=== PATIENT | male | born 1965 | race Caucasian/White ===

== ENCOUNTER 2018-09-20 02:11 | Emergency (ER) | payer SELFPAY ==
[2018-09-20] MEDS ORDERED: Albuterol/Ipratropium NEB.SOL* Albuterol 2.5 MG/Ipratropium 0.5 MG 3 ML INH ONE (02:20)
[2018-09-20] MEDS ORDERED: predniSONE TAB* 20 MG PO ONE (02:21)
[2018-09-20] MEDS ORDERED: Albuterol 2.5 MG/3 ML NEB.SOL* (0.083%) INH ONE (02:36)
[2018-09-20] MEDS: Albuterol 2.5 MG/3 ML NEB.SOL* (0.083%) INH SCH ×2 (02:39→02:53)
--- NOTE | 2018-09-20 02:58 | ED ---
Shortness of Breath - HPI Summary HPI Summary: This patient is a 52 year old M presenting to [facility] accompanied by his with a chief complaint of wheezing for the past hour and half. Patient is visiting from [place] and is staying in a house with dogs, which can trigger his asthma. Patient forgot his inhaler at home. - History of Current Complaint Chief Complaint: EDShortnessOfBreath Time Seen by Provider: 09/20/18 02:16 Hx Obtained From: Patient Onset/Duration: Lasting Hours Timing: Constant Aggravating Factors: Allergens Alleviating Factors: Nothing Associated Signs & Symptoms: Wheezing Related History: Similar Episode - Allergy/Home Medications Allergies/Adverse Reactions: Allergies Allergy/AdvReac Type Severity Reaction Status Date / Time No Known Allergies Allergy Verified 09/20/18 02:15 PMH/Surg Hx/FS Hx/Imm Hx Respiratory History: Reports: Hx Asthma EENT History: Denies: Hx Deafness Infectious Disease History: No Infectious Disease History: Denies: Traveled Outside the [place] in Last 30 Days - Family History Known Family History: Positive: Non-Contributory - Social History Lives: With Family Hx Tobacco Use: No Smoking Status (MU): Never Smoked Tobacco Review of Systems Negative: Fever Positive: Shortness Of Breath All Other Systems Reviewed And Are Negative: Yes Physical Exam - Summary Physical Exam Summary: GENERAL: Patient is a well-developed and nourished male who is lying comfortable in the stretcher. Patient is not in any acute respiratory distress. HEAD AND FACE: No signs of trauma. No ecchymosis, hematomas or skull depressions. No sinus tenderness. EYES: PERRLA, EOMI x 2, No injected conjunctiva, no nystagmus. EARS: Hearing grossly intact. Ear canals and tympanic membranes are within normal limits. MOUTH: Oropharynx within normal limits. NECK: Supple, trachea is midline, no adenopathy, no JVD, no carotid bruit, no c- spine tenderness, neck with full ROM CHEST: Symmetric, no tenderness at palpation LUNGS: Bilateral scattered expiratory wheezes. CVS: Regular rate and rhythm, S1 and S2 present, no murmurs or gallops appreciated. ABDOMEN: Soft, non-tender. No signs of distention. No rebound no guarding, and no masses palpated. Bowel sounds are normal. EXTREMITIES: FROM in all major joints, no edema, no cyanosis or clubbing. NEURO: Alert and oriented x 3. No acute neurological deficits. Speech is normal and follows commands. SKIN: Dry and warm Triage Information Reviewed: Yes Vital Signs On Initial Exam: Initial Vitals Temp Pulse Resp BP Pulse Ox 98.1 F 82 20 131/90 96 09/20/18 02:12 09/20/18 02:12 09/20/18 02:12 09/20/18 02:12 09/20/18 02:12 Vital Signs Reviewed: Yes Diagnostics - Vital Signs Vital Signs Temp Pulse Resp BP Pulse Ox 09/20/18 02:12 98.1 F 82 20 131/90 96 - Laboratory Lab Statement: Any lab studies that have been ordered have been reviewed, and results considered in the medical decision making process. Course/Dx - Course Course Of Treatment: 52 year old M presenting to [facility] accompanied by his with a chief complaint of wheezing for the past hour and half. Patient is given prednisone, an nebulizer treatment, and an albuterol inhaler with improvement of symptoms. Patient will be discharged home. Patient is returning to [place] later today where he states he has his inhaler. - Diagnoses Provider Diagnoses: Asthma Discharge - Sign-Out/Discharge Documenting (check all that apply): Patient Departure - discharge Patient Received Moderate/Deep Sedation with Procedure: No - Discharge Plan Condition: Stable Disposition: HOME Patient Education Materials: Asthma (ED) Additional Instructions: Follow up with your primary doctor when you get home, if necessary. .RETURN TO THE EMERGENCY DEPARTMENT FOR CHANGING OR WORSENING SYMPTOMS. - Attestation Statements Document Initiated by Scribe: Yes Documenting Scribe: Sofía Hagen Provider For Whom Scribe is Documenting (Include Credential): Adriana Salomon MD Scribe Attestation: Sofía Gil, scribed for Adriana Salomon MD on 09/20/18 at 0324. Status of Scribe Document: Ready
[2018-09-20] MEDS ORDERED: Albuterol HFA INHALER* 8 gm MDI INH ONE (03:13)
[2018-09-20] MEDS ORDERED: Albuterol HFA INHALER* 8 gm MDI INH SCH (07:00)
== END 2018-09-20 03:40 | disposition home or self-care (01) ==
LOC: ED 02:11
DX: J45.909 Unspecified asthma, uncomplicated (principal)
CPT/HCPCS: 99282; A9270-GY; J7512